=== PATIENT | male | born 1965 | race Caucasian/White ===

== ENCOUNTER 2019-08-22 04:15 | Emergency (ER) | payer SELFPAY ==
[~2019-08-22] VITALS: Ht 190.5 cm; Wt 95.0 kg
[2019-08-22 04:16] VITALS: BP 155/88
[2019-08-22] MEDS ORDERED: ibuprofen tablet 400 MG TABLET PO ONE (04:25)
== END 2019-08-22 05:31 | disposition home or self-care (01) ==
LOC: ER 04:16
DX: S63.501A Unspecified sprain of right wrist, initial encounter (principal); F12.90 Cannabis use, unspecified, uncomplicated; W18.09XA Striking against other object with subsequent fall, initial encounter; Y93.89 Activity, other specified; Y92.89 Other specified places as the place of occurrence of the external cause; Y99.9 Unspecified external cause status
CPT/HCPCS: 29125; 73110; 99283